=== PATIENT | female | born 1990 | race Caucasian/White ===

== ENCOUNTER → 2022-10-05 16:03 | Outpatient (CLI) | payer BC, SELFPAY ==
[2022-10-05 17:10] LABS: Basophils # 0.1 K/mm3 (0-0.2); Basophils % 0.7 % (0.1-2.0); Eosinophils # 0.1 K/mm3 (0.0-0.4); Eosinophils % 0.9 % (0.1-12.0); Hematocrit 40.4 % (37.0-47.0); Hemoglobin 13.5 g/dL (12.2-16.2); Lymphocytes # 2.6 K/mm3 (0.7-4.5); Lymphocytes % 21.8 % (10-50); Mean Corpuscular HGB Conc 33.4 g/dL (31.8-35.4); Mean Corpuscular Hemoglobin 28.4 pg (27.0-31.2); Mean Corpuscular Volume 84.9 fl (81-99); Mean Platelet Volume 8.2 fl (7.4-10.4); Monocytes # 0.5 K/mm3 (0.1-1.0); Monocytes % 3.9 % (1.7-9.3); Neutrophils # 8.8 K/mm3 (1.8-7.8); Neutrophils % 72.7 % (37.0-80.0); Platelet Count 287 K/mm3 (142-424); Red Blood Count 4.76 M/mm3 (4.20-5.40); Red Cell Distribution Width 13.6 % (11.5-17.5)
[2022-10-05 17:43] LABS: Urine Pregnancy, HCG Qual. Negative (Negative)
[2022-10-05 17:46] LABS: Alanine Aminotransferase 23 U/L (12-78); Albumin Level 4.3 g/dl (3.5-5.0); Albumin/Globulin Ratio 1.5 (1.1-1.8); Alkaline Phosphatase 118 U/L (38-126); Amylase 65 U/L (30-110); Anion Gap 9.3 mEq/L (5-15); Aspartate Amino Transferase 23 U/L (14-36); Blood Urea Nitrogen 8 mg/dl (7-17); Calcium 8.5 mg/dl (8.4-10.2); Carbon Dioxide 31 mmol/L (22.0-30.0); Chloride 101 mmol/L (98-107); Estimated Glomerular Filt Rate 114 ml/min (>60); GFR (African American) 138 ML/MIN (>60); Globulin 2.8 g/dL (1.3-3.2); Glucose 116 mg/dl (74-100); Lipase 69 U/L (23-300); Potassium 4.3 mmoL/L (3.5-5.1); Sodium 137 mmol/L (136-145); Total Protein,Serum 7.1 g/dl (6.3-8.2)
== END ==
PROVIDERS: PCP Family Medicine; Visit Provider Surgery
DX: K80.20 Calculus of gallbladder without cholecystitis without obstruction (principal)
CPT/HCPCS: 36415; 80053; 81025; 82150; 83690; 85025

== ENCOUNTER 2022-10-10 14:50 | Emergency (ER) | payer BC, SELFPAY ==
[2022-10-10 15:10] VITALS: BP 148/64; PULSE 94; RESP 16; TEMP 37.2; O2SAT 97; BMI 45.4
--- NOTE | 2022-10-10 15:24 | EXP.UTC ---
Discharge Plan Disposition Patient Disposition: Home, Self-Care Condition: Good Prescriptions Prescriptions: New azithromycin [Zithromax Z-Kris] 250 mg tablet See Rx Instructions .ROUTE .COMPLEX 5 Days Qty: 6 0RF Rx Instructions: For 250 mg dose pack: take 500 mg today (day 1), then 250 mg for 4 days (days 2-5) methylprednisolone [Medrol (Kris)] 4 mg tablets,dose pack See Rx Instructions .Route .COMPLEX 6 Days Qty: 21 0RF Rx Instructions: taper pack; No Action levothyroxine 75 mcg Tablet 75 mcg PO DAILY Referrals Follow up/Referrals: Gerson Victoria [Primary Care Provider] - See instructions Activity Restrictions/Add. Instructions Additional Instructions/Restrictions: *Monitor Temp, Over the counter Motrin or Tylenol as directed/as needed Tylenol every 4 hours and Motrin every 6 hours (as long as your family doctor has told you that you can take it) for fever or pain. and straight to ER if unable to lower temp less than 101.0 after medication given *Warm salt water gargles may help to soothe the throat *Throat Lozenges? *Warm fluids like tea with honey may help to soothe the throat? *Sleep elevated *Humidifier/Vaporizer Follow up IMMEDIATELY for new or worsening symptoms or no Noticeable improvement over the next 48-72 hours. 911 for difficulty breathing or swallowing Clinical Impressions Clinical Impression: Sinusitis Stand Alone Forms Stand Alone Forms: Work/School Release Instructions Patient Instructions: DI for Sinusitis, Sinusitis Discharge ED Provider: Latha Hodges [facility] General Stated complaint: Sneezing, drainage, cough Mode of Arrival: Ambulatory Source of Information: Patient Limitations: No Limitations Time Seen by Provider: 10/10/22 15:24 Description of Symptoms (Recalled from Triage Doc. by RN): PATIENT C/O SINUS DRAINAGE, COUGH, SNEEZING, AND ITCHY EYES/EARS X 3 DAYS HEENT Symptoms (Recalled from RN notes): Yes Resp Symptoms (Recalled from RN notes): Yes Skin Symptoms (Recalled from RN notes): No MS Symptoms (Recalled from RN notes): No Functional Status (Recalled from RN notes): WNL History of Present Illness Provider Complaint: Patient states that she has been having sinus pain and pressure, sneezing and cough and itchy eyes for about 5 days States that she thought it was just allergies at first but for the last couple of days her sinus pressure and pain has got worse so she came in to get checked out Related Data Home Medications Medication Instructions Recorded Confirmed levothyroxine 75 mcg tablet 75 mcg PO DAILY THYROID 10/10/22 10/10/22 Previous Rx's Medication Instructions Recorded azithromycin 250 mg tablet See Rx Instructions PO .COMPLEX 5 10/10/22 (Zithromax Z-Kris) days #6 tabs methylprednisolone 4 mg tablets in See Rx Instructions .Route 10/10/22 a dose pack (Medrol (Kris)) .COMPLEX 6 days #21 tabs Allergies Allergy/AdvReac Type Severity Reaction Status Date / Time acetaminophen Allergy Verified 09/27/22 09:29 [From Excedrin Migraine] aspirin Allergy Verified 09/27/22 09:29 [From Excedrin Migraine] caffeine Allergy Verified 09/27/22 09:29 [From Excedrin Migraine] cefaclor Allergy Verified 09/27/22 09:29 Worker's Comp Is this a Worker's Comp case?: No [facility] Disclaimer: The information contained in this section may have been updated after the patient was seen, as this information can be updated by other users. Social History (Updated 09/27/22 @ 12:23 by Don Moore MD) Smoking Status: Former smoker alcohol intake: current substance use type: denies use current occupational status: employed Travel in the last 8 weeks: None number of children: 2 ROS Obtained: Yes All systems reviewed & no additional complaints except as documented and Yes Systems reviewed as appropriate & no additional complaints except as documented Constitutional Constitutiona
[2022-10-10 15:36] VITALS: BP 148/64; PULSE 94; RESP 16; TEMP 37.2; O2SAT 97
== END 2022-10-10 15:57 | disposition home or self-care (01) ==
PROVIDERS: Emergency Provider Nurse Practitioner; PCP Family Medicine
DX: J01.90 Acute sinusitis, unspecified (principal); R05.1 Acute cough
CPT/HCPCS: 99212; 99214; G0463

== ENCOUNTER 2022-11-14 20:46 | Observation (INO) | payer BC, SELFPAY ==
[2022-11-14 21:00] VITALS: BP 141/84; PULSE 81; RESP 15; TEMP 36.7; O2SAT 100; BMI 34.9
[2022-11-14 21:37] LABS: Microscopic, Urine URINE MICROSCOPIC (MICROSCOPIC)
[2022-11-14 21:43] LABS: Appearance,Urine CLEAR (Clear); Blood, Urine Negative (Negative); Color,Urine DK YELLOW (Yellow); Glucose,Urine (UA) TRACE (Negative); Ketones,Urine TRACE (Negative); Leukocyte Esterase,Urine TRACE (Negative); Nitrate,Urine Negative (Negative); PH,Urine 7.5 (5.0-8.5); Protein,Urine 1+ (Negative); Specific Gravity, Urine 1.015 (1.005-1.030)
[2022-11-14 21:46] LABS: Urine Pregnancy, HCG Qual. Negative (Negative)
--- NOTE | 2022-11-14 21:51 | CT_ITS ---
PROCEDURE INFORMATION: Exam: CT Abdomen And Pelvis Without Contrast Exam date and time: 11/14/2022 9:53 PM Age: 32 years old Clinical indication: Abdominal pain; Prior surgery; Additional info: Ruq pain TECHNIQUE: Imaging protocol: Computed tomography of the abdomen and pelvis without contrast. Radiation optimization: All CT scans at this facility use at least one of these dose optimization techniques: automated exposure control; mA and/or kV adjustment per patient size (includes targeted exams where dose is matched to clinical indication); or iterative reconstruction. REPORTING DATA: Count of CT and Cardiac NM exams in prior 12 months: This patient has received 0 known CTs and 0 known cardiac nuclear medicine studies in the 12 months prior to the current study. COMPARISON: No relevant prior studies available. FINDINGS: Liver: Normal. No mass. Gallbladder and bile ducts: Normal. No calcified stones. No ductal dilation. Pancreas: Normal. No ductal dilation. Spleen: Normal. No splenomegaly. Adrenal glands: Normal. No mass. Kidneys and ureters: Normal. No hydronephrosis. Stomach and bowel: Unremarkable. No obstruction. No mucosal thickening. Appendix: No evidence of appendicitis. Intraperitoneal space: Unremarkable. No free air. No significant fluid collection. Vasculature: Unremarkable. No abdominal aortic aneurysm. Lymph nodes: Unremarkable. No enlarged lymph nodes. Reactive lymph nodes. Urinary bladder: Unremarkable as visualized. Reproductive: Unremarkable as visualized. Bones/joints: Unremarkable. No acute fracture. Soft tissues: Unremarkable. IMPRESSION: No acute findings.
[2022-11-14 22:01] LABS: Basophils # 0.1 K/mm3 (0-0.2); Basophils % 0.5 % (0.1-2.0); Eosinophils # 0.2 K/mm3 (0.0-0.4); Hematocrit 45.6 % (37.0-47.0); Hemoglobin 15.2 g/dL (12.2-16.2); Lymphocytes # 1.6 K/mm3 (0.7-4.5); Lymphocytes % 13.5 % (10-50); Mean Corpuscular HGB Conc 33.4 g/dL (31.8-35.4); Mean Corpuscular Hemoglobin 28.3 pg (27.0-31.2); Mean Corpuscular Volume 84.5 fl (81-99); Mean Platelet Volume 9.3 fl (7.4-10.4); Monocytes # 0.5 K/mm3 (0.1-1.0); Monocytes % 3.9 % (1.7-9.3); Neutrophils # 9.6 K/mm3 (1.8-7.8); Neutrophils % 80.1 % (37.0-80.0); Platelet Count 340 K/mm3 (142-424); Red Cell Distribution Width 13.5 % (11.5-17.5); White Blood Count 11.9 K/mm3 (4.8-10.8)
[2022-11-14 22:05] LABS: Alanine Aminotransferase 118 U/L (12-78); Albumin Level 4.7 g/dl (3.5-5.0); Alkaline Phosphatase 145 U/L (38-126); Amylase 94 U/L (30-110); Anion Gap 10.5 mEq/L (5-15); Aspartate Amino Transferase 247 U/L (14-36); Bilirubin,Direct 0.5 mg/dl (0.0-0.4); Bilirubin,Indirect 0.8 mg/dL (0.0-0.9); Bilirubin,Total 1.3 mg/dl (0.2-1.3); Bilirubin,Unconjugated 0.8 mg/dL (0.0-1.1); Blood Urea Nitrogen 10 mg/dl (7-17); Calcium 9.2 mg/dl (8.4-10.2); Carbon Dioxide 28 mmol/L (22.0-30.0); Chloride 102 mmol/L (98-107); Creatinine Clearance Estimated 211 mL/min (50-200); Estimated Glomerular Filt Rate 114 ml/min (>60); GFR (African American) 138 ML/MIN (>60); Glucose 132 mg/dl (74-100); Lipase 129 U/L (23-300); Potassium 3.5 mmoL/L (3.5-5.1); Sodium 137 mmol/L (136-145); Total Protein,Serum 8.8 g/dl (6.3-8.2)
[2022-11-14 22:10] LABS: Bilirubin,Urine 1+ (Negative)
[2022-11-14 22:11] LABS: C-Reactive Protein 18.5 mg/L (0-4)
--- NOTE | 2022-11-14 22:23 | HMH.EDABDPAI ---
Discharge Plan Disposition Chief Complaint: Abdominal Pain Discharge ED Provider: Pino (ED),Thomas Love Abdominal Pain HPI General Chief Complaint: Abdominal Pain Stated Complaint: possible Galbladder attack Time Seen by Provider: 11/14/22 21:45 Mode of Arrival: Family Vehicle Source of Information: Patient Limitations: No Limitations Description of Symptoms (Recalled from ER Triage Doc. by RN): 32 yo female presents with cc of right side abd pain that she states is a gallbladder attack . Patient has a history of multiple gallbladder related issues confirmed with ultrasound and is supposed to have surgical removal but has been trying to delay till 'school lets out for the summer'. Tonight she began having pain after eating at approx 1620. She took tylenol ES with minimal reduction in pain but it is increasing. Patient denies fever. Complains of nausea/diarrhea, no vomiting at this time. History of Present Illness HPI narrative: Patient is a 32-year-old occasion female with complaint severe right upper quadrant pain. Patient's been having right upper quadrant pain for the past year. She has been putting off getting her gallbladder out. She was supposed to have it on October 04 but she wanted to wait till school was out. This gallbladder attack happened at 1 PM after she ate cheese sticks. Nausea and vomiting. No fever or chills. Couple episodes of diarrhea MD complaint: abdominal pain Onset (ago): hour(s) Consistency: constant Location: RUQ Severity: severe Severity scale (1-10): >10 Quality: aching and dull Radiation: epigastric and R flank Migration to: epigastric and R flank Relieving factors: nothing Exacerbating factors: eating Associated symptoms: nausea and vomiting Related Data Home Medications Medication Instructions Recorded Confirmed levothyroxine 75 mcg tablet 75 mcg PO DAILY THYROID 10/10/22 11/14/22 Allergies Allergy/AdvReac Type Severity Reaction Status Date / Time acetaminophen Allergy Verified 09/27/22 09:29 [From Excedrin Migraine] aspirin Allergy Verified 09/27/22 09:29 [From Excedrin Migraine] caffeine Allergy Verified 09/27/22 09:29 [From Excedrin Migraine] cefaclor Allergy Verified 09/27/22 09:29 [facility] Disclaimer: The information contained in this section may have been updated after the patient was seen, as this information can be updated by other users. Medical History H/O: hypothyroidism Social History Smoking Status: Former smoker alcohol intake: current substance use type: denies use current occupational status: employed Travel in the last 8 weeks: None number of children: 2 ROS Obtained: Yes All systems reviewed & no additional complaints except as documented Gastrointestinal Gastrointestingal: Reports abdominal pain, diarrhea, nausea and vomiting Physical Exam General General appearance: alert, in distress and obese Head Head exam: atraumatic, normocephalic and normal inspection Eye Eye exam: Present normal appearance, PERRL and EOMI; Absent scleral icterus or conjunctival redness ENT ENT exam: Present normal exam, normal oropharynx and mucous membranes dry; Absent mucous membranes moist Neck Neck exam: Present normal inspection, full ROM and trachea midline Chest Chest inspection: Present normal inspection and symmetric chest wall rise Respiratory Respiratory exam: Present normal lung sounds bilaterally Cardiovascular Cardiovascular exam: Present regular rate, normal rhythm, tachycardia, +S1 and +S2 Abdominal Exam Abdominal exam: Present soft, tenderness (Upper quadrant tenderness) and normal bowel sounds; Absent distention, guarding, rebound or rigidity Extremities Exam Extremities exam: Present normal inspection, full ROM and normal capillary refill; Absent tenderness Back Exam Back exam: Present normal inspection and full ROM; Abs
--- NOTE | 2022-11-14 22:38 | PC.NURSE ---
Dr. Moore paged for ED doctor
[2022-11-14 22:39] LABS: Erythrocyte Sedimentation Rate 15 mm/hr (0-20)
--- NOTE | 2022-11-14 22:39 | PC.NURSE ---
ED doctor on phone with Dr. Moore
--- NOTE | 2022-11-14 22:43 | PC.NURSE ---
Er on phone with hospitalist
[2022-11-14 22:48] LABS: Lactic Acid 2.1 mmol/L (0.7-2.1)
--- NOTE | 2022-11-14 22:48 | PC.NURSE ---
Patient admitted to 205 observation with dx of cholelithiasis to service of Dr. Roque.
[2022-11-14 22:49] LABS: Bacteria,Urine Trace /lpf; RBC,Urine Occasional #/hpf (0-3)
[2022-11-14 22:50] LABS: Yeast,Urine Occasional /lpf
[2022-11-14 22:53] LABS: Coronavirus 19, PCR Not Detected (NotDetected); Influenza A, PCR Not Detected (NotDetected); Influenza B, PCR Not Detected (NotDetected)
[2022-11-14 22:54] LABS: Activated Partial Thrombo Time 30.3 seconds (22.8-30.6); INR 1.01 (0.9-1.1); Prothrombin Time 10.9 seconds (10.1-12.5)
[2022-11-14 23:04] LABS: Procalcitonin 0.047 ng/mL (0.0-2.0)
[2022-11-14 23:30] VITALS: BP 142/72; PULSE 79; RESP 16; TEMP 36.6; O2SAT 100
--- NOTE | 2022-11-14 23:31 | PC.NURSE ---
PT ARRIVED TO FLOOR AT THIS TIME
[2022-11-14 23:49] VITALS: BP 109/73; PULSE 80; RESP 18; TEMP 36.7; O2SAT 99; BMI 41.3
[2022-11-15] VITALS (20 sets, daily range): BP systolic 92–155; BP diastolic 16–95; PULSE 63–103; RESP 12–18; TEMP 36.6–43; O2SAT 92–100; BMI 41.3
--- NOTE | 2022-11-15 00:07 | EXP.HP ---
History of Present Illness *Admission Date: 11/14/22 *Reason for visit:: Abdominal Pain *History of present illness: Ms. Nagy is a 32-year-old female with a past medical history of Hypothyroidism. She presents to [facility] due to an acute onset of right upper quadrant pain that occurred a few hours prior to presentation associated with nausea and diarrhea. 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 In the ER, the patient had a CT of the abdomen and pelvis that showed no acute findings. CBC was unremarkable. CMP showed elevated LFT's at 247 and 118. Total bilirubin was unremarkable. The ER Physician spoke with the Surgeon who will see the patient in consult and recommended US of the Gallbladder in the morning for evaluation. [facility] Disclaimer: The information contained in this section may have been updated after the patient was seen, as this information can be updated by other users. Medical History (Updated 11/15/22 @ 10:58 by Carlos Roque MD) H/O: hypothyroidism Surgical History (Updated 11/15/22 @ 00:12 by Diane Rolle RN) Status post right foot surgery Social History (Updated 11/15/22 @ 00:13 by Diane Rolle RN) Smoking Status: Former smoker alcohol intake: never substance use type: denies use current occupational status: employed Travel in the last 8 weeks: None number of children: 2 Review of Systems Review of Systems Review of systems:: pertinent systems reviewed and negative unless documented below Constitutional Constitutional: Reports system reviewed and no additional complaints, except as documented Eyes Eyes: Reports system reviewed and no additional complaints, except as documented ENT Ears, Nose, Mouth, and Throat: Reports system reviewed and no additional complaints, except as documented *Cardiovascular Cardiovascular: Reports system reviewed and no additional complaints, except as documented *Respiratory Respiratory: Reports system reviewed and no additional complaints, except as documented *Gastrointestinal Gastrointestinal: Reports abdominal pain, Reports change in stool character and Reports nausea *Genitourinary Genitourinary: Reports system reviewed and no additional complaints, except as documented *Musculoskeletal Musculoskeletal: Reports system reviewed and no additional complaints, except as documented Integumentary/Breasts Skin/Breast: Reports system reviewed and no additional complaints, except as documented *Neurologic Neurologic: Reports system reviewed and no additional complaints, except as documented Psychiatric Psychiatric: Reports system reviewed and no additional complaints, except as documented Endocrine Endocrine: Reports system reviewed and no additional complaints, except as documented Hematologic/Lymphatic Hematologic/Lymphatic: Reports system reviewed and no additional complaints, except as documented Allergic/Immunologic Allergic/Immunologic: Reports system reviewed and no additional complaints, except as documented Meds Home Medications and Allergies Home Medications Medication Instructions Recorded Confirmed Type levothyroxine 100 mcg tablet 100 mcg PO DAILY THYROID 11/15/22 11/15/22 History New Prescriptions to Start Prescriptions: Allergies Allergy/AdvReac Type Severity Reaction Status Date / Time acetaminophen Allergy Verified 09/27/22 09:29 [From Excedrin Migraine] aspirin Allergy Verified 09/27/22 09:29 [From Excedrin Migraine] caffeine Allergy Verified 09/27/22 09:29 [From Excedrin Migraine] cefaclor Allergy Verified 09/27/22 09:29 Exam Data for Last 24 hours Vital signs and Labs for Last 24 Hours: Temp Pulse Resp BP Pulse Ox 98.1 F 80 18 109/73 L 99 11/14/22 23:49 11/14/22 23:49 11/14/22 23:49 11/14/22 23:49 11/14/22 23:49 L
[2022-11-15 02:10] LABS: Reflex Lactic Add Lactic Reflex
[2022-11-15 02:58] LABS: Lactic Acid Follow Up (RFLX 1) 1.2 mmol/L (0.7-2.1)
--- NOTE | 2022-11-15 04:16 | PC.NURSE ---
Pt. got an abx this morning and has had no c/o pain since being medicated in the ER. No changes noted.
--- NOTE | 2022-11-15 06:49 | EXP.SURG.CON ---
History of Present Illness *Admission Date: 11/14/22 *Reason for visit:: Cholecystitis *History of present illness: Patient is a 32-year-old female whom I had seen in the office on 09/27/[address] Victoria for gallbladder. She had been having problems for about 1 year described initially as upper abdominal and left upper quadrant pain with more recent epigastric and right upper quadrant pain with radiation through to her back and shoulder blade. There has been some exacerbation postprandially initially with heavy fatty foods but becoming more consistent with essentially any foods. She had been seen in the emergency department at [facility] 08/22/2022. At that time she did apparently have some evidence of pancreatitis by blood work and CT scan revealed mildly distended gallbladder. Gallbladder ultrasound performed at [facility] on 09/08/2022 revealed hepatic steatosis and cholelithiasis without cholecystitis. Arrangements were being made for surgery. She had some improvement in her symptoms and had gone quite some time being asymptomatic. 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 Yesterday she had eaten some mozzarella sticks. She presented to the emergency department here at [facility] with acute onset of right upper quadrant pain with associated nausea and interestingly diarrhea. She had some slight elevation of transaminases with normal bilirubin. She was admitted for inpatient management. Since admission she has been asymptomatic. [facility] Disclaimer: The information contained in this section may have been updated after the patient was seen, as this information can be updated by other users. Medical History (Updated 11/15/22 @ 00:16 by Oziel Hurd DNP) H/O: hypothyroidism Surgical History (Updated 11/15/22 @ 00:12 by Diane Rolle RN) Status post right foot surgery Social History (Updated 11/15/22 @ 00:13 by Diane Rolle RN) Smoking Status: Former smoker alcohol intake: never substance use type: denies use current occupational status: employed Travel in the last 8 weeks: None number of children: 2 Review of Systems *Neurologic Neurologic: Reports system reviewed and no additional complaints, except as documented Meds Home Medications and Allergies Home Medications Medication Instructions Recorded Confirmed Type levothyroxine 100 mcg tablet 100 mcg PO DAILY THYROID 11/15/22 11/15/22 History New Prescriptions to Start Prescriptions: Allergies Allergy/AdvReac Type Severity Reaction Status Date / Time acetaminophen Allergy Verified 09/27/22 09:29 [From Excedrin Migraine] aspirin Allergy Verified 09/27/22 09:29 [From Excedrin Migraine] caffeine Allergy Verified 09/27/22 09:29 [From Excedrin Migraine] cefaclor Allergy Verified 09/27/22 09:29 Exam (Inpt) Vital signs and Labs for Last 24 Hours: Temp Pulse Resp BP Pulse Ox 97.9 F 63 18 92/63 L 98 11/15/22 04:00 11/15/22 04:00 11/15/22 04:00 11/15/22 04:00 11/15/22 04:00 Laboratory Results - last 24 hr 11/14/22 21:33: Urine Color Dk yellow, Urine Appearance Clear, Urine pH 7.5, Ur Specific [place] 1.015, Urine Protein 1+, Urine Glucose (UA) Trace, Urine Ketones Trace, Urine Blood Negative, Urine Nitrate Negative, Urine Bilirubin 1+ A, Urine Urobilinogen 4.0, Ur Leukocyte Esterase Trace, Urine RBC Occasional, Urine WBC 3-5, Ur Squamous Epith Cells 5-10, Urine Bacteria Trace, Urine Yeast Occasional 11/14/22 21:33: Urine HCG, Qual Negative 11/14/22 21:50: WBC 11.9 H, RBC 5.40, Hgb 15.2, Hct 45.6, MCV 84.5, MCH 28.3, MCHC 33.4, RDW 13.5, Plt Count 340, MPV 9.3, Neut % (Auto) 80.1 H, Lymph % (Auto) 13.5, [place] % (Auto) 3.9, Eos % (Auto) 2.0, Baso % (Auto) 0.5, Neut # (Auto) 9.6 H, Lymph # (Auto) 1.6, [place] # (Auto) 0.5, Eos # (Auto) 0.2, Baso # (Auto) 0.1, ESR 15 11/14/22 21:
--- NOTE | 2022-11-15 07:06 | HMH.PHAINT1 ---
Pharmacy Intervention Comments: MEDICATION RECONCILIATION COMPLETED ON PATIENT USING EXTERNAL FILL HISTORY FROM PHARMACY. -DOE LEW, BRIANNAD
--- NOTE | 2022-11-15 07:12 | US_ITS ---
FINAL REPORT CLINICAL HISTORY: RUQ PAIN, ELEVATED LFTS FINDINGS: Sonographic images of the right upper quadrant were obtained. There is made that this was a difficult scan. The pancreas is partially obscured. There is increased echogenicity of the liver consistent with fatty infiltration. There are multiple gallstones within the gallbladder. There is no evidence of biliary ductal dilatation.The common duct measures 4mm. Limited images of the right kidney are unremarkable. IMPRESSION: Fatty infiltrated liver. Multiple gallstones. Reviewed, Interpreted and Dictated by Don Lane III, MD Transcribed by Raven Lincoln Authenticated and [facility]
[2022-11-15 07:41] LABS: Chloride 106 mmol/L (98-107); Potassium 3.9 mmoL/L (3.5-5.1); Sodium 140 mmol/L (136-145)
[2022-11-15 07:43] LABS: Alanine Aminotransferase 337 U/L (12-78); Aspartate Amino Transferase 486 U/L (14-36); Blood Urea Nitrogen 9 mg/dl (7-17); Creatinine Clearance Estimated 124 mL/min (50-200); Estimated Glomerular Filt Rate 114 ml/min (>60); GFR (African American) 138 ML/MIN (>60)
[2022-11-15 07:44] LABS: Albumin/Globulin Ratio 1.2 (1.1-1.8); Alkaline Phosphatase 170 U/L (38-126); Anion Gap 11.9 mEq/L (5-15); Bilirubin,Total 2.1 mg/dl (0.2-1.3); Calcium 8.4 mg/dl (8.4-10.2); Carbon Dioxide 26 mmol/L (22.0-30.0); Globulin 3.3 g/dL (1.3-3.2); Glucose 105 mg/dl (74-100); Total Protein,Serum 7.3 g/dl (6.3-8.2)
--- NOTE | 2022-11-15 08:54 | PC.NURSE ---
Patient returned from scan.
--- NOTE | 2022-11-15 10:53 | ECG_ITS ---
APPROVED REPORT Exam: Resting ECG HR:60 bpm ECG Measurements Heart Rate 60 AXES [place] 182 P 13 QRSd 98 QRS 21 QT 411 T 17 QTc 413 Conclusion SINUS RHYTHM WITH SINUS ARRHYTHMIA NORMAL ECG UNCONFIRMED REPORT Electronically signed by : Av Beck MD 11/18/2022 14:33:57
--- NOTE | 2022-11-15 10:56 | EXP.ACUTE.PN ---
Subjective *Date: 11/15/22 *Time: 10:56 Interval history: Pain doing better this morning. No nausea or vomiting. Stable on room air. Afebrile. Still with very mild discomfort on palpation of right upper quadrant. Reviewed labs, worsening liver enzymes this morning and elevated bilirubin at 2.1. Discussed case with surgery. Medical Exam Vital signs and Labs for Last 24 Hours: Vital Signs Temp Pulse Pulse Resp BP BP Pulse Ox 11/15/22 07:43 98.2 F 65 18 115/72 97 11/15/22 07:34 98.1 F 82 18 125/64 96 11/15/22 04:00 97.9 F 63 18 92/63 L 98 11/14/22 23:49 98.1 F 80 18 109/73 L 99 11/14/22 23:30 98 F 79 16 142/72 H 11/14/22 21:00 98.0 F 81 15 141/84 H 100 Intake and Output 11/14/22 11/15/22 11/15/22 23:59 07:59 15:59 Intake Total 1650 / 1650 Output Total 350 / 350 0 / 350 Balance 1300 / 1300 0 / 1300 Intake: Intake, Oral Amount 600 / 600 Intake, Total IV Amount 1050 / 1050 0.9 % Sodium Chloride 1000ML 1000 / 1000 500 ml @ 999 mls/hr IV .Q31M BRENDA Rx#:[id number] Piperacillin/Tazo 3.375 gm In 0 50 / 50 .9 % Sodium Chloride 50 ml @ 100 mls/hr IV Q6H BRENDA Rx#: [id number] Output: Output, Urine Amount 350 / 350 0 / 350 Other: Number of Unmeasured Voids 1 1 Weight 119.493 kg 119.493 kg Patient Weight 11/15/22 23:59 Weight 119.493 kg Laboratory Results - last 24 hr 11/14/22 21:33: Urine Color Dk yellow, Urine Appearance Clear, Urine pH 7.5, Ur Specific [place] 1.015, Urine Protein 1+, Urine Glucose (UA) Trace, Urine Ketones Trace, Urine Blood Negative, Urine Nitrate Negative, Urine Bilirubin 1+ A, Urine Urobilinogen 4.0, Ur Leukocyte Esterase Trace, Urine RBC Occasional, Urine WBC 3-5, Ur Squamous Epith Cells 5-10, Urine Bacteria Trace, Urine Yeast Occasional 11/14/22 21:33: Urine HCG, Qual Negative 11/14/22 21:50: WBC 11.9 H, RBC 5.40, Hgb 15.2, Hct 45.6, MCV 84.5, MCH 28.3, MCHC 33.4, RDW 13.5, Plt Count 340, MPV 9.3, Neut % (Auto) 80.1 H, Lymph % (Auto) 13.5, [place] % (Auto) 3.9, Eos % (Auto) 2.0, Baso % (Auto) 0.5, Neut # (Auto) 9.6 H, Lymph # (Auto) 1.6, [place] # (Auto) 0.5, Eos # (Auto) 0.2, Baso # (Auto) 0.1, ESR 15 11/14/22 21:50: Sodium 137, Potassium 3.5, Chloride 102, Carbon Dioxide 28, Anion Gap 10.5, BUN 10, Creatinine 0.60, Estimated Creat Clear 211, Estimated GFR 114, Est GFR ( Amer) 138, Glucose 132 H, Calcium 9.2, Total Bilirubin 1.3, Direct Bilirubin 0.5 H, Conjugated Bilirubin 0.0, Indirect Bilirubin 0.8, Unconjugated Bilirubin 0.8, AST 247 H, ALT 118 H, Alkaline Phosphatase 145 H, C-Reactive Protein 18.5 H, Total Protein 8.8 H, Albumin 4.7, Amylase 94, Lipase 129 11/14/22 22:20: PT 10.9, INR 1.01, APTT 30.3 11/14/22 22:20: Lactate 2.1 11/14/22 22:20: Procalcitonin 0.047 11/14/22 22:47: SARS-CoV-2 (PCR) Not detected, Influenza A Untype (PCR) Not detected, Influenza Type B (PCR) Not detected 11/15/22 02:40: Lactate 1.2 11/15/22 07:28: Sodium 140, Potassium 3.9, Chloride 106, Carbon Dioxide 26, Anion Gap 11.9, BUN 9, Creatinine 0.60, Estimated Creat Clear 124, Estimated GFR 114, Est GFR ( Amer) 138, Glucose 105 H D, Calcium 8.4, Total Bilirubin 2.1 H, AST 486 H* D, ALT 337 H*, Alkaline Phosphatase 170 H, Total Protein 7.3, Albumin 4.0 D, Globulin 3.3 H, Albumin/Globulin Ratio 1.2 I & O for Labs for Last 24 Hours: Intake & Output 11/12/22 11/13/22 11/14/22 11/15/22 23:59 23:59 23:59 23:59 Intake Total 1650 / 1650 Output Total 350 / 350 Balance 1300 / 1300 Weight 119.493 kg 119.493 kg Constitutional: Present no acute distress and obese Head: Present atraumatic and normocephalic ENT: Present normal exam Neck: Present normal inspection Respiratory: Present normal respiratory effort; Absent accessory muscle use, rhonchi, wheezes or crackles Cardiac: Present Reg Rate and Rhythm GI: Present soft, tenderness (mild RUQ and epigastric, no LUQ tenderness) and normal bowel sound
--- NOTE | 2022-11-15 11:33 | EXP.ANES.CKL ---
[facility] Disclaimer: The information contained in this section may have been updated after the patient was seen, as this information can be updated by other users. Medical History (Updated 11/15/22 @ 10:58 by Carlos Roque MD) H/O: hypothyroidism Surgical History (Updated 11/15/22 @ 00:12 by Diane Rolle RN) Status post right foot surgery Social History (Updated 11/15/22 @ 00:13 by Diane Rolle RN) Smoking Status: Former smoker alcohol intake: never substance use type: denies use current occupational status: employed Travel in the last 8 weeks: None number of children: 2 [facility] Anesthesia Checklist Patient Identification Patient Identification: Arm Band Structural Data Admitted From: Home Planned Operative Procedure/s: Laparoscopic Cholecystectomy Consent for Planned Operative Procedure(s) Verified: Yes Verified Documents: Surgical Consent and History and Physical NPO Status Verified Time NPO: 00:00 Additional verifications Anesthesia Reactions: No Airway Assessment C-Spine Mobility Assessed: Yes TMJ Mobility Assessed: Yes Dentition: Good Dentition Neurological Assessment Level of Consciousness: Awake and Alert Anesthesia Plan Anesthesia Risk discussed: Yes Anesthesia Plan: Verified ASA Class: III Anesthesia Type: General
--- NOTE | 2022-11-15 13:35 | XR_ITS ---
FINAL REPORT CLINICAL HISTORY: CHOLANGIOGRAM IN OR fluoro time.48 FINDINGS: CHOLANGIOGRAM/PANCREATOGRAM INTRAOP Fluoroscopy was provided for intraoperative cholangiogram. No filling defect is seen. Two spot films were obtained. There is 48 seconds of fluoroscopy time. 36.56 mGy. IMPRESSION: 48 seconds of fluoroscopy time. 36.56 mGy. Reviewed, Interpreted and Dictated by Don Lane III, MD Transcribed by Matthew Garrett Authenticated and [facility]
--- NOTE | 2022-11-15 14:07 | EXP.OP.NOTE ---
Date of procedure: 11/15/22 Pre-op Diagnosis:: Cholecystitis Post-op Diagnosis:: Same with probable choledocholithiasis Procedure performed:: Laparoscopic cholecystectomy with intraoperative cholangiogram Surgeon:: Don Moore MD [employer]:: Other Anesthesia: GETA Estimated blood loss (mL): 15 Clinical Note:: Patient is a 32-year-old female whom I had seen in the office on 09/27/[address] Victoria for gallbladder.? She had been having problems for about 1 year described initially as upper abdominal and left upper quadrant pain with more recent epigastric and right upper quadrant pain with radiation through to her back and shoulder blade.? There has been some exacerbation postprandially initially with heavy fatty foods but becoming more consistent with essentially any foods.? She had been seen in the emergency department at [facility] 08/22/2022.? At that time she did apparently have some evidence of pancreatitis by blood work and CT scan revealed mildly distended gallbladder.? Gallbladder ultrasound performed at [facility] on 09/08/2022 revealed hepatic steatosis and cholelithiasis without cholecystitis.? Arrangements were being made for surgery.? She had some improvement in her symptoms and had gone quite some time being asymptomatic.? 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 Yesterday she had eaten some mozzarella sticks.? She presented to the emergency department here at [facility] with acute onset of right upper quadrant pain with associated nausea and interestingly diarrhea.? She had some slight elevation of transaminases with normal bilirubin.? She was admitted for inpatient management.? After admission she became asymptomatic. However, she underwent repeat liver function test. This revealed further increase in transaminases with AST of 486, ALT of 337, alkaline phosphatase 170, bilirubin 2.1. She underwent gallbladder ultrasound which revealed fatty infiltrated liver. Multiple gallstones. Review of the images revealed normal common bile duct. Given these findings plan was made to proceed with cholecystectomy with intraoperative cholangiogram as she likely had either acute cholecystitis and possible choledocholithiasis without cholangitis. Operative findings:: She had a distended thickened gallbladder which was edematous. There were numerous gallstones. She had a prominent cystic duct with visible gallstones. Intraoperative cholangiogram revealed no evidence of any filling of the duodenum with a possible stone/filling defect in the mid common duct. There was fatty infiltration of the liver Operative note:: Consent was obtained and patient was taken to the operating room. She was given preoperative intravenous antibiotics. In the operating room she was placed in a supine position. General anesthesia was induced via endotracheal tube. Abdomen was prepped and draped in the standard surgical fashion. Subumbilical skin incision was made and while performing abdominal wall lift Veress needle was inserted. CO2 pneumoperitoneum was achieved to 15 mmHg. 11 mm optical trocar was inserted at the umbilicus. She was positioned in reverse Trendelenburg and left side down. A couple of 5 mm trocars were inserted in the right upper abdomen. 10 mm trocar was inserted in the epigastrium. There is fatty infiltration of the liver. Gallbladder was grasped retracted anteriorly over the dome of the liver. Gallbladder was quite tense and distended with some thickening. He was partially drained with the suction aspirator. Gallbladder was then able to be retracted over the dome of the liver. Infundibulum of the gallbladder was retracted anterolaterally. Blunt dissection was carried out at the neck of the gallbladder bluntly incising the visceral peritoneum. The cystic duct appeared to be acute and c
--- NOTE | 2022-11-15 15:36 | EXP.ANES.I ---
[facility] Anesthesia Record Part I Anesthesia Record I Intake, IV Amount: 800 Estimated blood loss (mL): 15 Urine output (mL): 0 Blood Products used (#): none Blood Pressure: 121/62 SaO2: 92 Pulse Rate: 93 Respiratory Rate: 14 Temperature: 98.3 F Patient is:: Drowsy and Stable Stable to PACU at:: 14:08
--- NOTE | 2022-11-15 16:35 | EXP.DC.SUM ---
General Admission date:: 11/14/22 Discharge date: 11/15/22 HPI HPI HPI: Patient is a 32-year-old female whom I had seen in the office on 09/27/[address] Victoria for gallbladder. She had been having problems for about 1 year described initially as upper abdominal and left upper quadrant pain with more recent epigastric and right upper quadrant pain with radiation through to her back and shoulder blade. There has been some exacerbation postprandially initially with heavy fatty foods but becoming more consistent with essentially any foods. She had been seen in the emergency department at [facility] 08/22/2022. At that time she did apparently have some evidence of pancreatitis by blood work and CT scan revealed mildly distended gallbladder. Gallbladder ultrasound performed at [facility] on 09/08/2022 revealed hepatic steatosis and cholelithiasis without cholecystitis. Arrangements were being made for surgery. She had some improvement in her symptoms and had gone quite some time being asymptomatic. 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 Yesterday she had eaten some mozzarella sticks. She presented to the emergency department here at [facility] with acute onset of right upper quadrant pain with associated nausea and interestingly diarrhea. She had some slight elevation of transaminases with normal bilirubin. She was admitted for inpatient management. Since admission she has been asymptomatic. Hospital Course Hospital Course Hospital Course: 32-year-old female with past medical history of Gallstones and Hypothyroidism presents with an acute episode of right upper quadrant abdominal pain.? Concern for cholecystitis.? Worsening liver function in the morning however pain improving.? Surgery consulted.? Appreciate their recommendations.? Problems addressed as follows: - Cholecystitis -Suspected choledocholithiasis 32-year-old female who presented with right upper quadrant pain and mild elevation in LFTs. Increased overnight after admission. Surgery was consulted. Patient taken for laparoscopic cholecystectomy. Tolerated procedure well however intraoperative cholangiogram showed concern for a filling defect and lack of contrast moving from common bile duct to duodenum. This is highly suspicious and suggestive of obstruction and choledocholithiasis. Surgery consulted with Dr. Daren Elliott at [facility] for possible ERCP. Medicine was consulted for transfer. Patient graciously excepted at [facility] for further management with possible ERCP in the morning. Patient has remained afebrile during hospitalization. Continued on empiric Zosyn 3.375 mg IV every 6 hours for antibiotic coverage. Right upper quadrant ultrasound obtained during hospitalization showing biliary sludge and distention but no pericolic fluid. - Transaminitis Hepatitis Panel ordered, still pending. Likely secondary to passage of sludge or stones. - Hypothyroidism Continue home levothyroxine 100 mcg daily Class III obesity complicates all aspects of her care Stable for transfer to [facility] for further management with GI consult. Exam Data for Last 24 hours Vital signs and Labs for Last 24 Hours: Temp Pulse Resp BP Pulse Ox 98.3 F 93 H 14 121/62 100 11/15/22 15:37 11/15/22 15:37 11/15/22 15:37 11/15/22 15:37 11/15/22 14:52 Laboratory Results - last 24 hr 11/14/22 21:33: Urine Color Dk yellow, Urine Appearance Clear, Urine pH 7.5, Ur Specific [place] 1.015, Urine Protein 1+, Urine Glucose (UA) Trace, Urine Ketones Trace, Urine Blood Negative, Urine Nitrate Negative, Urine Bilirubin 1+ A, Urine Urobilinogen 4.0, Ur Leukocyte Esterase Trace, Urine RBC Occasional, Urine WBC 3-5, Ur Squamous Epith Cells 5-10, Urine Bacteria Trace, Urine Yeast Occasional 11/14/22 21:33: Urine HCG, Qual Neg
--- NOTE | 2022-11-15 17:57 | PC.NURSE ---
Currently awaiting a bed from [facility].
--- NOTE | 2022-11-15 20:24 | PC.NURSE ---
Report called at 19:15 and asked to call back. Report also called again and asked to call back in a few.
--- NOTE | 2022-11-15 21:23 | PC.NURSE ---
Report given to [facility], nurse Celina FINLEY.
--- NOTE | 2022-11-15 21:47 | PC.NURSE ---
Pt. aox4, vss, 5 lap sites with 2x2 and tegaderm c/d/i, up ad sunni, 20g left hand. report called to [facility].
[2022-11-16] VITALS: BP 134/77; PULSE 64; RESP 18; TEMP 36.7; O2SAT 100
[2022-11-17 08:27] VITALS: BP 141/89; PULSE 95; TEMP 36.8
--- NOTE | 2022-11-17 08:27 | EXP.ANES.II ---
[facility] Anesthesia Record Part II Anesthesia Record Part II Discharge Time: 14:42 Destination: Medical Surgical Department PACU nurse assessment reviewed?: Yes Patient Condition:: Good Anesthesia Complications:: None Swallowing reflex intact?: Yes Cyanosis?: No Blood Pressure: 141/89 Pulse Rate: 95 Temperature: 98.3 F Mental Status: Alert & Oriented Pain level:: 0 Nausea and/or vomitting:: None Intake, IV Amount: 0
== END 2022-11-16 00:30 | disposition short-term general hospital (02) ==
LOC: ER 22:42 → 2ND 22:50
PROVIDERS: Emergency Medicine; Surgery; Admitting Provider Internal Medicine Adolescent Medicine; Emergency Provider Emergency Medicine; Visit Provider Internal Medicine Adolescent Medicine
PROC: (CPT 47563; principal; 2022-11-15 12:00)
DX: K80.10 Calculus of gallbladder with chronic cholecystitis without obstruction (principal); E66.2 Morbid (severe) obesity with alveolar hypoventilation; Z68.41 Body mass index [BMI] 40.0-44.9, adult
CPT/HCPCS: 47563; 36415; 74176; 74300; 76705; 80048; 80053; 80076; 81001; 81025; 82150; 83605; 83690; 84145; 85025; 85610; 85651; 85730; 86140; 87040; 88304; 93005; 99285; C9803; G0378; J2405; J2543; U0003; U0005

== ENCOUNTER 2024-11-25 17:02 | Outpatient (CLI) | payer MEDICAID, SELFPAY | END 2024-11-25 23:59 | disposition home or self-care (01) | LOC: LAB.DROPOF 11-26 13:07 | PROVIDERS: PCP Student in an Organized Health Care Education/Training Program; Visit Provider Student in an Organized Health Care Education/Training Program | DX: M54.9 Dorsalgia, unspecified (principal) | CPT/HCPCS: 87086 ==